=== PATIENT | male | born 1985 | race African-American/Black ===

== ENCOUNTER 2016-08-19 14:21 | Emergency (ER) | payer SELFPAY ==
[~2016-08-19] VITALS: Ht 177.8 cm; Wt 120.0 kg
[2016-08-19 14:24] VITALS: BP 158/79; PULSE 90; RESP 15; TEMP 97.7; O2SAT 98
--- NOTE | 2016-08-19 14:28 | PD ---
Physical Exam Date Seen by Provider: August 19, 2016 Time Seen by Provider: 14:26 Narrative 31 YOBM C/O BACK PAIN. H/O CHRONIC PAIN NO INJURY. VVS WAITING FOR BED PLACEMENT Data Data Last Documented VS Vital Signs Date Time Temp Pulse Resp B/P Pulse Ox O2 Delivery O2 Flow Rate FiO2 08/19/16 14:24 97.7 90 15 158/79 98 MDM Medical Record Reviewed: Yes Supervised Visit with LAUREN: No Scripts No Active Prescriptions or Reported Meds Wesley Crews August 19, 2016 14:28
--- NOTE | 2016-08-19 14:44 | PD ---
HPI . chronic back pain since middle school Chief Complaint: Back/ Neck Pain or Injury Time Seen by Provider: 14:39 Travel History International Travel<30 days: No Contact w/Intl Traveler<30days: No Traveled to known affect area: No History of Present Illness HPI 31-year-old male here for complaints of chronic back pain. Patient says he's had back pain since he was in middle school. He tells me that he has not had any recent injuries. He denies any bowel or bladder dysfunction. He denies any saddle anesthesia. 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 REPLACED BY [facility] Social History Alcohol Use: No Tobacco Use: No Substance Use: No Allergies-Medications (Allergen,Severity, Reaction): Coded Allergies: No Known Allergies (Verified , 06/17/14) Reported Meds & Prescriptions Reported Meds & Active Scripts Active No Active Prescriptions or Reported Medications Review of Systems General / Constitutional: No: Fever Eyes: No: Visual changes HENT: No: Headaches Cardiovascular: No: Chest Pain or Discomfort Respiratory: No: Shortness of Breath Gastrointestinal: No: Abdominal Pain Genitourinary: No: Dysuria Musculoskeletal: Positive: Pain (back) Skin: No Rash Neurologic: No: Weakness Psychiatric: No: Depression Endocrine: No: Polydipsia Hematologic/Lymphatic: No: Easy Bruising Physical Exam Narrative GENERAL: AAO x 3, no acute distress, Well-nourished, well-developed patient. SKIN: Warm and dry. No visible rashes or bruising. HEAD: Normocephalic and atraumatic. EYES: No scleral icterus. No injection or drainage. EOM intact, PERRLA ENT: No nasal drainage noted. Mucous membranes pink. Airway patent. NECK: Supple, trachea midline. No JVD. CARDIOVASCULAR: Regular rate and rhythm without murmurs, gallops, or rubs. RESPIRATORY: Breath sounds equal bilaterally. No accessory muscle use. No rhonchi or rales. GASTROINTESTINAL: Abdomen soft, non-tender, nondistended. EXTREMITIES: No cyanosis or edema. BACK: Nontender without obvious deformity. No CVA tenderness. No paraspinal tenderness. Full range of motion at the hip. Negative straight leg raise bilaterally. Ambulatory. Normal gait. Heel walk test negative NEURO: Strength in the lower extremities normal bilaterally. PSYCH: AAO x 3, normal affect. Data Data Last Documented VS Vital Signs Date Time Temp Pulse Resp B/P Pulse Ox O2 Delivery O2 Flow Rate FiO2 08/19/16 14:24 97.7 90 15 158/79 98 MDM Medical Decision Making Medical Screen Exam Complete: Yes Emergency Medical Condition: No Medical Record Reviewed: Yes Differential Diagnosis Chronic back pain, muscle spasm, malingering, Narrative Course 31-year-old male here with chronic back pain. He is requesting a note for light duty at work. I explained to him that his physical exam is normal. Imaging not indicated and no abnormal findings.He says he just needs a note. Then when told I would not provide a note he says, "Only in [place]." A medical screening exam was performed: At the time of evaluation the presenting medical condition was determined not to be of an emergent nature. The patient was given the option of receiving additional care, but declined. Patient was given options for additional community resources from which to obtain care. The Patient Has Been advised to seek medical attention for their presenting complaint. The patient has been advised to return to the ER at any time if an emergent condition develops. Diagnosis Primary Impression: Encounter for medical screening examination Scripts No Active Prescriptions or Reported Meds Condition: Stable Stephany Hinton August 19, 2016 14:44
== END 2016-08-19 15:03 | disposition left against medical advice (07) ==
LOC: NEPK 14:21
DX: M54.9 Dorsalgia, unspecified (principal)
CPT/HCPCS: 99281